=== PATIENT | female | born 1960 | race Caucasian/White ===

== ENCOUNTER 2016-09-17 17:11 | Emergency (ER) | payer OTHER ==
[~2016-09-17] VITALS: Ht 165.1 cm; Wt 103.0 kg
[~2016-09-17 17:11] MED LIST: COUM7.5T PO; DIPH50TA PO; PRED10 PO; RANI150 PO; ZOLP10TA3 PO
[2016-09-17] MEDS ORDERED: CALC1TAB87 PO (17:29)
[2016-09-17] MEDS ORDERED: OMEP40CA2 PO (17:29)
[2016-09-17] MEDS ORDERED: FOLI1TAB4 PO (17:29)
[2016-09-17] MEDS ORDERED: LISI10TA3 PO (17:29)
[2016-09-17] MEDS ORDERED: TEMA30CA PO (17:29)
[2016-09-17 17:30] VITALS: BP 139/86; PULSE 84; RESP 18; TEMP 99.5; O2SAT 97
--- NOTE | 2016-09-17 17:37 | PD ---
HPI Chief Complaint: Nosebleed Time Seen by Provider: 17:28 Travel History International Travel<30 days: No Contact w/Intl Traveler<30days: No Traveled to known affect area: No History of Present Illness HPI 56-year-old female patient presents to the ER today because of 3 days history of intermittent nose bleeding. She states that she pulled out a bunch of clot from her nose today and was spitting up blood that was going down her throat today and asked why she is here. She states that she feels some mild lightheadedness. She denies any chest pains, shortness of breath, or any other symptoms. She denies being on any blood thinners. She states that she had been on blood pressure medications because she has been having problems intermittently with nasal bleeds. 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) Endocrine: No Glaucoma: No Genitourinary: No Hepatitis: No Hiatal Hernia: Yes (AND ACID REFLUX) Hypertension: No Immune Disorder: No Musculoskeletal: No Neurologic: No Psychiatric: No Reproductive: No Respiratory: Yes (LEFT LOWER LOBECTOMY) Thyroid Disease: No ?: Not Past Surgical History Abdominal Surgery: Yes (CHOLECYSTECTOMY) Cardiac Surgery: No Section: Yes Cholecystectomy: Yes Ear Surgery: No Endocrine Surgery: No Eye Surgery: No Genitourinary Surgery: No Hysterectomy: Yes Oral Surgery: No Thoracic Surgery: Yes (LEFT LOWER LOBECTOMY DUE TO ADENOMA CARCINOID) Other Surgery: Yes (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) Social History Alcohol Use: Yes (rare, twice a year) Tobacco Use: No Substance Use: No Allergies-Medications (Allergen,Severity, Reaction): Coded Allergies: Contrast Media (Verified Allergy, Severe, HIVES AND DECREASED B/P, 09/17/16 ) Penicillin (Verified Allergy, Severe, HIVES, 09/17/16) Sulfa (Verified Allergy, Severe, HIVES, 09/17/16) Reported Meds & Prescriptions Reported Meds & Active Scripts Active Reported Calcium 600 with Vitamin D (Calcium Carbonate-Cholecalciferol) 600-400 mg-Unit Tab 1 Tab PO DAILY Folate (Folic Acid) 1 Mg Tab 1 Mg PO DAILY Temazepam 30 Mg Cap 30 Mg PO HS PRN Omeprazole 40 Mg Cap 80 Mg PO DAILY Lisinopril 10 Mg Tab 10 Mg PO DAILY Review of Systems Except as stated in HPI: all other systems reviewed are Neg Physical Exam Narrative GENERAL: Well-developed middle age white female patient currently in mild distress. SKIN: Focused skin assessment warm/dry. HEAD: Atraumatic. Normocephalic. EYES: Pupils equal and round. No scleral icterus. No injection or drainage. ENT: Mucosa pink and moist. No erythema or exudates. No uvular edema. No uvular , palatal, or tonsillar deviation. Airway patent. Nasal turbinates appear normal with small amount of nasal blood but no active bleeding, no purulent drainage or septal hematoma. NECK: Trachea midline. No JVD. CARDIOVASCULAR: Regular rate and rhythm. No murmur appreciated. RESPIRATORY: No accessory muscle use. Clear to auscultation. Breath sounds equal bilaterally. GASTROINTESTINAL: Abdomen soft, non-tender, nondistended. Hepatic and splenic margins not palpable. MUSCULOSKELETAL: No obvious deformities. No clubbing. No cyanosis. No edema. NEUROLOGICAL: Awake and alert. No obvious cranial nerve deficits. Motor grossly within normal limits. Normal speech. PSYCHIATRIC: Appropriate mood and affect; insight and judgment normal. Data Data Last Documented VS Vital Signs Date Time Temp Pulse Resp B/P Pulse Ox O2 Delivery O2 Flow Rate FiO2 09/17/16 17:30 99.5 84 18 139/86 97 Orders Complete Blood Count With Diff (09/17/16 17:28) Prothrombin Time / Inr (Pt) (09/17/16 17:28) Act Partial Throm Time (Ptt) (09/17/16 17:28) Labs Laboratory Tests Test 09/17/16 17:45 White Blood Count 8.1 TH/MM3 Red Blood Count 4.33 MIL/MM3 Hemoglobin 12.9 GM/DL Hematocrit 38.3 % Mean Corpuscular Volume 88.3 FL Mean Corpuscular Hemoglobin 29.7 PG Mean Corpuscular Hemoglobin 33.6 % Concent Red Cell Distribution Width 13.5 % Platelet Count 259 TH/MM3 Mean Platelet Volume 8.2 FL Neutrophils (%) (Auto) 61.3 % Lymphocytes (%) (Auto) 23.8 % Monocytes (%) (Auto) 7.9 % Eosinophils (%) (Auto) 2.8 % Basophils (%) (Auto) 4.2 % Neutrophils # (Auto) 5.1 TH/MM3 Lymphocytes # (Auto) 1.9 TH/MM3 Monocytes # (Auto) 0.6 TH/MM3 Eosinophils # (Auto) 0.2 TH/MM3 Basophils # (Auto) 0.3 TH/MM3 CBC Comment DIFF FINAL Differential Comment Prothrombin Time 9.8 SEC Prothromb Time International 0.9 RATIO Ratio Activated Partial 24.5 SEC Thromboplast Time MDM Medical Decision Making Medical Screen Exam Complete: Yes Emergency Medical Condition: Yes Medical Record Reviewed: Yes Interpretation(s) Laboratory Tests Test 09/17/16 17:45 Basophils (%) (Auto) 4.2 % (0.0-2.0) Basophils # (Auto) 0.3 TH/MM3 (0-0.2) Differential Diagnosis Epistaxis Narrative Course Epistaxis has resolved in the ER. Vital signs are stable. H&H is stable. She does not appear to have any coagulopathies and she is not currently on any blood thinners. At this point, I have talked to the patient regarding whether she would want me to place a Rhino Rocket into the left nostril where she has noted the most bleeding. She is declining at this time. My plan would be to release her with follow-up to primary care physician. Return for worsening in symptoms as necessary. The plan has been discussed with her and she states understanding. Diagnosis Primary Impression: EPISTAXIS Disposition: 01 DISCHARGE HOME Condition: Stable Nitza Frost MD September 17, 2016 17:37
[2016-09-17 17:53] LABS: AUTOMATED NEUTROPHIL # 5.1 TH/MM3 (1.8-7.7); BASOPHIL # 0.3 TH/MM3 (0-0.2); BASOPHIL % 4.2 % (0.0-2.0); EOSINOPHIL # 0.2 TH/MM3 (0-0.4); EOSINOPHIL % 2.8 % (0.0-4.0); HEMATOCRIT 38.3 % (35.0-46.0); HEMO FLAGS DIFF FINAL; LYMPH % 23.8 % (9.0-44.0); LYMPHOCYTE # 1.9 TH/MM3 (1.0-4.8); MEAN CELL VOLUME 88.3 FL (80.0-100.0); MEAN CORPUSCULAR HEMOGLOBIN 29.7 PG (27.0-34.0); MEAN CORPUSCULAR HGB CONC 33.6 % (32.0-36.0); MONO % 7.9 % (0.0-8.0); NEUT % 61.3 % (16.0-70.0); PLATELET COUNT 259 TH/MM3 (150-450); RED BLOOD COUNT 4.33 MIL/MM3 (4.00-5.30); RED CELL DISTRIBUTION WIDTH 13.5 % (11.6-17.2); WHITE BLOOD COUNT 8.1 TH/MM3 (4.0-11.0)
[2016-09-17 18:07] LABS: APTT (PATIENT) 24.5 SEC (24.3-30.1); INTERNATIONAL NORMALIZED RATIO 0.9 RATIO; PROTHROMBIN TIME - PATIENT 9.8 SEC (9.8-11.6)
== END 2016-09-17 18:24 | disposition home or self-care (01) ==
LOC: PHED 17:11
DX: R04.0 Epistaxis (principal); K21.9 Gastro-esophageal reflux disease without esophagitis; Z86.718 Personal history of other venous thrombosis and embolism
CPT/HCPCS: 85025; 85610; 85730; 99284